=== PATIENT | female | born 1990 | race Caucasian/White ===

== ENCOUNTER 2017-05-23 07:36 | Day surgery (SDC) | payer OTHER ==
[~2017-05-23 07:36] MED LIST: FERRIC SUBSULFATE 8 ML SOL.W.APPL TP ONE; HYDROmorphone 2 MG/ML VIAL IV PRN; IV RINGERS,LACTATED 1000ML 1,000 ML IV SCH; LIDOCAINE 1% 1 ML SYRINGE. ID PRN; LIDOCAINE 1%/EPI 1:100,000 20 ML VIAL. ONE; MORPHINE SULFATE 2 MG/ML DISP.SYRIN. IV PRN; ONDANSETRON PF 4 MG/2 ML VIAL. IV PRN; PROCHLORPERAZINE 10 MG/2 ML VIAL. IV PRN; fentaNYL PF VIAL 100 MCG/2 ML VIAL IV PRN
[2017-05-23] MEDS ORDERED: PSEU120T58 PO (07:57)
[2017-05-23] MEDS ORDERED: DEXAMETHASONE SOD PHOS 20 MG/5 ML VIAL. ONE (08:28)
[2017-05-23] MEDS ORDERED: ONDANSETRON PF 4 MG/2 ML VIAL. ONE (08:28)
[2017-05-23] MEDS ORDERED: PROPOFOL 20 ML IV ONE (08:28)
[2017-05-23] MEDS ORDERED: LIDOCAINE 2% PF Vial for OR 5 ML VIAL. ONE (08:28)
[2017-05-23] MEDS ORDERED: KETOROLAC 60 MG/2 ML INJ FOR OR. ONE (08:29)
[2017-05-23] MEDS ORDERED: fentaNYL PF VIAL 100 MCG/2 ML VIAL ONE (08:29)
[2017-05-23] MEDS ORDERED: MIDAZOLAM HCL/PF 2 MG/2 ML VIAL. ONE (08:30)
[2017-05-23 08:32] LABS: NEG OBC UR NEG; POS OBC UR POS
[2017-05-23] MEDS ORDERED: SEVOFLURANE 16 TO 30 MINUTES. IH ONE (09:51)
--- NOTE | 2017-05-23 09:52 | PDOC ---
BRIEF OPERATIVE NOTE Pre-Op Diagnosis Cervical Dysplasia Post-Op Diagnosis SAme Procedure Performed Cervical Cone Biopsy Surgeon Dr. Aguilar Anesthesia Type: General Blood Loss 10 ml Specimens Obtained cervical biopsy Findings cervical dysplasia Complications none LOS AGUILAR Jr, MD May 23, 2017 09:52
--- NOTE | 2017-05-23 09:53 | DISCH ---
DISCHARGE INSTRUCTIONS Condition on Discharge Condition on Discharge: Stable Activity After Discharge Activity Instructions for Disc: Activity as tolerated Lifting Instructions after Dis: No heavy lifting Driving Instructions after Dis: Do not drive today Diet after Discharge Diet after Discharge: Regular Contacting the DRMaricruz after DC Call your doctor for: Concerns you may have Follow-Up Follow up with: Dr. Aguilar in 2 weeks. LOS AGUILAR Jr, MD May 23, 2017 09:53
[2017-05-23] MEDS ORDERED: OXYC-323 PO (10:04)
[2017-05-23] MEDS ORDERED: oxyCODONE/APAP 5/325 1 TAB TABLET PO ONE (10:30)
--- NOTE | 2017-05-23 10:44 | OP ---
DATE OF SURGERY: PREOPERATIVE DIAGNOSIS: Cervical dysplasia. POSTOPERATIVE DIAGNOSIS: Cervical dysplasia. PROCEDURE: Cervical cone biopsy. SURGEON: Olman Aguilar MD ANESTHESIA: GETA. ESTIMATED BLOOD LOSS: 10 mL. COMPLICATIONS: None. FINDINGS: Cervical dysplasia. SUMMARY: A 26-year-old with cervical dysplasia found on colposcopic biopsy requiring cervical cone biopsy. The patient was counseled on risks, benefits and expectations and voiced clear understanding to proceed. DESCRIPTION OF PROCEDURE: The patient was taken to surgery suite and placed in dorsal lithotomy position. She was prepped with Betadine solution and draped in sterile fashion. After adequate anesthesia, a curved Burdette and weighted speculum were placed. Anterior lip of the cervix was grasped with a single tooth tenaculum. 1% lidocaine with epinephrine was injected in a circumferential manner. 2-0 Vicryl sutures placed at 3 and 9 o'clock position to better stabilize the cervix. Cervical cone biopsy was performed with a 45-degree angle scalpel removing the anterior lip of the cervix as well as the posterior lip of the cervix. The remaining cervix was cauterized with ball cautery for better . DICTATION ENDS HERE OLMAN AGUILAR MD DR: KAVEH/anamaria JOB#: [id number] / [id number]
[2017-05-23 11:02] VITALS: BP 103/56
--- NOTE | 2017-05-27 14:32 | PATHOLOGY ---
PATHOLOGY REPORT * * * * * * * * FINAL DIAGNOSIS: A. Uterine cervix biopsy, anterior lip: - Slight chronic inflammation. B. 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 COMMENT: Sections of the anterior lip cervical biopsy show slight chronic inflammation. The squamocolumnar junction is not present in the anterior lip biopsy. Sections of the posterior lip cervical biopsy show chronic inflammation with focal cellular changes suggestive of HPV effect in the region of the squamocolumnar junction. There is no evidence of high-grade dysplasia or malignancy within either cervical biopsy. (JPM:mgr; 05/27/2017) REPORT ELECTRONICALLY SIGNED BY: Jovon Gipson M.D. DATE/TIME: 05/27/2017 14:32 * * * * * * * * GROSS PATHOLOGY: A. The specimen is received in formalin labeled "Erica Baig, cervical biopsy, suture at 12:00," and additionally labeled on the requisition as, "cervical biopsy-anterior lip". Received is one half of an oriented LEEP specimen measuring 2.1 x 1.3 x 0.4 cm in greatest dimensions with a suture designating the 12:00 margin. The ectocervical mucosa is white-villavicencio and glistening in appearance. The endocervical margin is inked blue and the remaining margin is inked black. The specimen is serially sectioned and submitted entirely as follows: A1 12 to 3:00 margin A2 9 to 12:00 margin. B. The specimen is received in formalin labeled "Erica Baig, cervical biopsy-posterior lip". Received is one half of a LEEP specimen measuring 1.8 x 1.6 x 1.0 cm in greatest dimensions. The ectocervical mucosa is pale villavicencio and smooth to slightly granular in appearance. The endocervical margin is inked blue and the remaining margin is inked black. The specimen is serially sectioned and submitted entirely as follows: B1 3 to 6:00 margin B2 6 to 9:00 margin. (CAA; 05/24/2017) INITIAL CPT CODE(S): A; 49812 B; 34295 Professional services performed by [facility] at [address] [address] Technical services performed by [facility] at [address] [place] [address], [address] [address]. SPECIMEN(S) RECEIVED: A.Cervical biopsy, anterior lip, suture at 12 o'clock B.Cervical biopsy, posterior lip CLINICAL HISTORY: Abnormal pap smear, cervical dysplasia PATIENT: ERICA BAIG /AGE: 1210/15/1990 (Age: 26) PATIENT #: [id number] ALT CASE #: SPECIMEN COLLECTION DATE: 05/23/2017 SPECIMEN RECEIVED DATE: 05/23/2017 [facility] - [address] [place] [address] - PHONE: [phone] * * * END OF REPORT * * *
== END 2017-05-23 11:20 | disposition home or self-care (01) ==
LOC: SURG 07:36
PROVIDERS: ATTEND Obstetrics & Gynecology
DX: N87.9 Dysplasia of cervix uteri, unspecified (principal); J45.909 Unspecified asthma, uncomplicated; Z86.39 Personal history of other endocrine, nutritional and metabolic disease
CPT/HCPCS: 57500; 81025; J0690; J1100; J2001; J2250; J2405; J2704; J3010; J3490; J1885